=== PATIENT | male | born 1950 ===

== ENCOUNTER 2019-12-16 18:14 | Emergency (ER) | payer MEDICARE, OTHER ==
[~2019-12-16] VITALS: Ht 154.9 cm; Wt 69.8 kg
[~2019-12-16 18:14] MED LIST: ASPI325 PO; ATOR40TA PO; CEPH500 PO; CLOP75 MT; EZET10 PO; FISH OIL 1,2001 EAC4; GABA300; GLUCOSAMIN-CHO1 EACH; INSLIS75I; ISOMON20; METO25; TRAZ50; Vibramycin100 MG PO
[2019-12-16] MEDS ORDERED: EZETIMIBE10 M3 PO (19:45)
[2019-12-16] MEDS ORDERED: ISOSORBIDE MONO30 MG PO (19:45)
[2019-12-16] MEDS ORDERED: METOPROLOL TART25 MG PO (19:45)
[2019-12-16] MEDS ORDERED: ATOR20 PO (19:46)
[2019-12-16] MEDS ORDERED: Aspir 8181 MG PO (19:46)
[2019-12-16] MEDS ORDERED: NEURONTIN300 MG PO (19:46)
[2019-12-16] MEDS ORDERED: TRAZ50 PO (19:46)
[2019-12-16] MEDS ORDERED: KRILL OIL500 MG PO (19:47)
[2019-12-16] MEDS ORDERED: UBID10 PO (19:47)
[2019-12-16] MEDS ORDERED: VITAMIN D5000 UNIT PO (19:48)
[2019-12-16] MEDS ORDERED: GLUC500 PO (19:48)
[2019-12-16] MEDS ORDERED: ASCO500 PO (19:48)
[2019-12-16] MEDS ORDERED: CENTRUM SILVER1 EAC2 PO (19:49)
== END 2019-12-16 20:39 | disposition home or self-care (01) ==
LOC: ER 18:14
DX: S82.142A Displaced bicondylar fracture of left tibia, initial encounter for closed fracture (principal); Z91.09 Other allergy status, other than to drugs and biological substances; Z79.899 Other long term (current) drug therapy; Z79.82 Long term (current) use of aspirin; W11.XXXA Fall on and from ladder, initial encounter
CPT/HCPCS: 93971; 99283-25

== ENCOUNTER 2023-09-26 09:44 | Day surgery (SDC) | payer MEDICARE, BC ==
[~2023-09-26] VITALS: Ht 154.9 cm; Wt 70.8 kg
[~2023-09-26 09:44] MED LIST changes: +ASCO500 PO; +ATOR20 PO; +Aspir 8181 MG PO; +CENTRUM SILVER1 EAC2 PO; +EZETIMIBE10 M3 PO; +GLUC500 PO; +ISOSORBIDE MONO30 MG PO; +KRILL OIL500 MG PO; +Lactated Ringer's 1,000 ML IV ONE; +METOPROLOL TART25 MG PO; +NEURONTIN300 MG PO; +TRAZ50 PO; +UBID10 PO; +VITAMIN D5000 UNIT PO; +propofoL 50 ML IV ONE
[2023-09-26] MEDS ORDERED: ZINC15 (09:58)
[2023-09-26] MEDS ORDERED: GARLIC200 MG (09:58)
[2023-09-26] MEDS ORDERED: MSM (10:00)
[2023-09-26] MEDS ORDERED: CITRACAL-D3 ER1 EAC1 (10:01)
[2023-09-26] MEDS ORDERED: Lactated Ringer's 1,000 ML IV ONE (10:35)
[2023-09-26 11:44] VITALS: BP 113/76
== END 2023-09-26 11:46 | disposition home or self-care (01) ==
LOC: ORSCSDS 09:44
PROVIDERS: Specialist
PROC: 0DJD8ZZ Inspection of Lower Intestinal Tract, Via Natural or Artificial Opening Endoscopic (ICD-10-PCS; principal; 2023-09-26 11:00)
DX: Z12.11 Encounter for screening for malignant neoplasm of colon (principal); Z86.010 Personal history of colon polyps; K57.30 Diverticulosis of large intestine without perforation or abscess without bleeding; K64.8 Other hemorrhoids; K64.4 Residual hemorrhoidal skin tags; G47.33 Obstructive sleep apnea (adult) (pediatric); E78.5 Hyperlipidemia, unspecified; Z87.891 Personal history of nicotine dependence; Z79.02 Long term (current) use of antithrombotics/antiplatelets; Z79.82 Long term (current) use of aspirin; Z79.899 Other long term (current) drug therapy
CPT/HCPCS: J2704; J7120